=== PATIENT | male | born 1945 | race Caucasian/White ===

== ENCOUNTER → 2017-09-27 | Outpatient (CLI) | payer MEDICARE | LOC: CVU 06:43 | PROVIDERS: ATTEND Physician Assistant | DX: M71.21 Synovial cyst of popliteal space [Baker], right knee (principal); M71.22 Synovial cyst of popliteal space [Baker], left knee; I10 Essential (primary) hypertension; E11.9 Type 2 diabetes mellitus without complications; E78.5 Hyperlipidemia, unspecified | CPT/HCPCS: 93922; 93925 ==

== ENCOUNTER → 2018-12-14 | Outpatient (CLI) | payer MEDICARE | END | disposition home or self-care (01) | LOC: CVU 06:45 | PROVIDERS: ATTEND Podiatrist Foot & Ankle Surgery | DX: I70.213 Atherosclerosis of native arteries of extremities with intermittent claudication, bilateral legs (principal); L97.529 Non-pressure chronic ulcer of other part of left foot with unspecified severity; I10 Essential (primary) hypertension; E11.9 Type 2 diabetes mellitus without complications; E78.5 Hyperlipidemia, unspecified | CPT/HCPCS: 93922; 93925 ==

== ENCOUNTER 2021-05-15 07:16 | Emergency (ER) | payer MEDICARE ==
[~2021-05-15] VITALS: Ht 185.4 cm; Wt 84.1 kg
--- NOTE | 2021-05-15 07:45 | NUR ---
PT. TO ROOM FROM WALL WITH [facility] APROXIMATELY 5 MIN AGO.
[2021-05-15] MEDS ORDERED: PLEASE ENTER HEIGHT AND WEIGHT MC SCH (08:00)
[2021-05-15] MEDS ORDERED: PLEASE ENTER ALLERGIES MC SCH (08:00)
[2021-05-15 08:28] LABS: PH, VENOUS 7.445 pH (7.320-7.420)
[2021-05-15] MEDS ORDERED: SODIUM CHLORIDE 0.9% 1,000ML IVBOLUS ONE (08:30)
[2021-05-15 08:37] LABS: BASOPHILS % (AUTO) 0 % (0-1); EOSINOPHILS % (AUTO) 0 % (1-7); LYMPHOCYTES % (AUTO) 14 % (22-44); MEAN CORPUSCULAR HEMOGLOBIN 28.2 pg (27.5-34.5); MEAN CORPUSCULAR HGB CONC 32.7 g/dL (33.2-36.2); MEAN PLATELET VOLUME 7.7 fL (7.4-10.4); MICROSCOPIC INDICATED; MONOCYTES % (AUTO) 8 % (2-9); NEUTROPHILS % (AUTO) 78 % (42-75); PLATELET COUNT 363 x10^3/uL (130-400); RED BLOOD COUNT 3.73 x10^6/uL (4.38-5.82); RED CELL DISTRIBUTION WIDTH 16.2 % (9.4-14.8)
[2021-05-15 08:42] LABS: ALANINE AMINOTRANSFERASE 12 U/L (12-78); ALBUMIN 2.3 g/dL (3.4-5.0); ANION GAP 10 mmol/L (5-15); CALCIUM 9.5 mg/dL (8.5-10.1); CHLORIDE 97 mmol/L (98-107); CREATININE 0.72 mg/dL (0.7-1.3)
[2021-05-15 08:45] LABS: ALKALINE PHOSPHATASE 78 U/L (45-117); BILIRUBIN,TOTAL 0.7 mg/dL (0.2-1.0); TOTAL PROTEIN 7.4 g/dL (6.4-8.2)
--- NOTE | 2021-05-15 09:07 | NUR ---
RECEIVED BEDSIDE REPORT FROM MARTÍN FERNANDEZ. PT RESTING IN POSITION OF COMFORT IN [facility]. VSS. SPOUSE AT BEDSIDE. AWAITING RESULTS. PT DENIES NEEDS AT THIS TIME. CONTINUOUS SPO2 MONITORING IN PLACE.
[2021-05-15 09:41] LABS: ACETONE, SERUM Small (20mg/dL) (Negative)
--- NOTE | 2021-05-15 09:50 | NUR ---
PT'S CHART UP FOR RECHECK. PT AWARE.
--- NOTE | 2021-05-15 11:04 | NUR ---
COVID TEST SENT TO LAB
--- NOTE | 2021-05-15 12:19 | NUR ---
ED MD AT BEDSIDE TO DISCUSS POC WITH PT AND SPOUSE.
[2021-05-15] MEDS ORDERED: FILTER 0.22 MICRON IV ONE (12:30)
[2021-05-15] MEDS ORDERED: CASIRIVIMAB 600 MG, IMDEVIMAB (REGN10987) 600 MG in SODIUM CHLORIDE 0.9% 250 ML IVPB ONE (12:30)
--- NOTE | 2021-05-15 15:21 | NUR ---
PT'S IV INFUSION NEARLY COMPLETE. PT AND PT'S SPOUSE DENY NEEDS AT THIS TIME. VSS.
[2021-05-15 16:10] VITALS: BP 153/81
--- NOTE | 2021-05-15 16:13 | NUR ---
PT AND SPOUSE DECLINED INCENTIVE SPIROMETER STATING THEY HAVE ONE AT HOME. TEACHING COMPLETE ON USE.
== END 2021-05-15 16:39 | disposition home or self-care (01) ==
LOC: ED 07:16
DX: U07.1 COVID-19 (principal); J12.82 Pneumonia due to coronavirus disease 2019; E11.9 Type 2 diabetes mellitus without complications
CPT/HCPCS: 36415; 71045; 80053; 81001; 82010; 82803; 82962; 83735; 85025; 87040; 87635; 96360; 99285; J7030; M0243